=== PATIENT | male | born 1975 | race Hispanic/Latino ===

== ENCOUNTER 2018-12-14 14:56 | Emergency (ER) | payer OTHER ==
[~2018-12-14] VITALS: Ht 170.2 cm; Wt 89.8 kg
[~2018-12-14 14:56] MED LIST: AZITHROMYCIN250 MG PO; METHYLPREDNISOL40 MG PO
[2018-12-14] MEDS ORDERED: IBUPROFEN 600 MG TAB PO NR (15:15)
[2018-12-14] MEDS ORDERED: AZITHROMYCIN250 MG PO (15:21)
--- NOTE | 2018-12-14 16:14 | Diagnostic Imaging Report ---
EXAMINATION: PA and lateral views of the chest. COMPARISON: None CLINICAL HISTORY: Productive cough, chest pain DISCUSSION: Lines/tubes: None. Lungs: The lungs are well inflated and clear. There is no evidence of pneumonia or pulmonary edema. Pleura: There is no pleural effusion or pneumothorax. Heart and mediastinum: The cardiomediastinal silhouette is normal. Bones and soft tissues: No acute bony abnormalities. IMPRESSION: No acute cardiopulmonary abnormalities. Signed by: Dr. Angelito Francois M.D. on 12/14/2018 4:11 PM
[2018-12-14 16:59] VITALS: BP 134/85
== END 2018-12-14 17:02 | disposition home or self-care (01) ==
LOC: ER 14:56
DX: R05 Cough (principal); J20.9 Acute bronchitis, unspecified; F17.210 Nicotine dependence, cigarettes, uncomplicated
CPT/HCPCS: 71046; 99283